=== PATIENT | female | born 1995 | race Two or more races ===

== ENCOUNTER 2021-06-16 17:50 | Observation (INO) | payer MEDICAID ==
[~2021-06-16] VITALS: Ht 170.2 cm; Wt 93.4 kg
[2021-06-16] MEDS ORDERED: ASPIRIN 81 MG (21:52)
[2021-06-16] MEDS ORDERED: PRENATAL VITAMIN (21:52)
== END 2021-06-16 22:00 | disposition home or self-care (01) ==
LOC: 8 EST LDRP 17:50
PROVIDERS: ADMIT Obstetrics & Gynecology; ATTEND Obstetrics & Gynecology
DX: O36.8130 Decreased fetal movements, third trimester, not applicable or unspecified (principal); Z3A.28 28 weeks gestation of pregnancy
CPT/HCPCS: 59025; 76805; 76818; G0378; 99281

== ENCOUNTER 2024-05-02 14:34 | Emergency (ER) | payer MEDICAID ==
[~2024-05-02] VITALS: Ht 170.2 cm; Wt 120.0 kg
[~2024-05-02 14:34] MED LIST: ASPIRIN 81 MG; PRENATAL VITAMIN
[2024-05-02 14:39] VITALS: O2SAT 98
[2024-05-02] MEDS ORDERED: ONDANSETRON HCL 4MG/2ML INJ IV ONE (15:30)
[2024-05-02] MEDS ORDERED: ACETAMINOPHEN 325MG TABLET PO ONE (15:30)
[2024-05-02 15:56] LABS: CARBON DIOXIDE 23 mEq/L (21-32)
[2024-05-02 15:57] LABS: CALCIUM 9.1 mg/dL (8.7-10.4)
[2024-05-02 16:01] LABS: CREATININE 0.5 mg/dL (0.6-1.0); GLUCOSE 119 mg/dL (70-105); UREA NITROGEN BLOOD 6 mg/dL (9-23)
[2024-05-02 16:03] LABS: BASOPHILS % 0.2 % (0.0-2.0); EOSINOPHILS % 0.5 % (0.0-5.0); HEMATOCRIT. 36.2 % (36.0-48.0); HEMOGLOBIN. 12.2 g/dL (12.0-16.0); LYMPHOCYTES % 18.1 % (20.0-50.0); MEAN CORPUSCULAR HEMOGLOBIN 30.4 pg (28.0-32.0); MEAN CORPUSCULAR HGB CONC 33.6 g/dL (31.0-37.0); MEAN CORPUSCULAR VOLUME 90.4 fL (81.0-99.0); MEAN PLATELET VOLUME 8.7 fl (7.4-10.4); MONOCYTES % 4.5 % (2.0-8.0); NEUTROPHILS % 76.7 % (40.0-76.0); PLATELET 328 x1000/uL (130-400); RED CELL DISTRIBUTION WIDTH 13.7 % (11.6-14.6); WHITE BLOOD COUNT 9.6 x1000/uL (4.5-11.0)
[2024-05-02 16:10] LABS: HCG SCREEN POSITIVE
[2024-05-02 16:13] LABS: CHLORIDE 109 mEq/L (98-107); POTASSIUM 2.9 mEq/L (3.5-5.1); SODIUM 138 mEq/L (136-145)
[2024-05-02 16:18] LABS: B-HCG QUANTITATIVE 85490 mIU/mL (<3)
[2024-05-02] MEDS: SODIUM CHLORIDE 0.9% 1,000 ML IV ONE (17:20)
[2024-05-02] MEDS: ACETAMINOPHEN 325MG TABLET PO NR (17:27)
[2024-05-02] MEDS: ONDANSETRON HCL 4MG/2ML INJ IV NR (17:27)
[2024-05-02] MEDS ORDERED: POTASSIUM BICARB/CIT ACID 25 MEQ TABLET.EFF PO ONE (17:45)
[2024-05-02] MEDS ORDERED: ONDA4TAB11 PO (18:03)
[2024-05-02] MEDS ORDERED: PREN-135 MT (18:03)
[2024-05-02] MEDS: POTASSIUM BICARB/CIT ACID 25 MEQ TABLET.EFF PO SCH (18:24)
[2024-05-02 18:37] VITALS: BP 110/80; PULSE 85; RESP 17; TEMP 98.7
== END 2024-05-02 18:38 | disposition home or self-care (01) ==
LOC: ER 14:34
DX: O20.0 Threatened abortion (principal); Z3A.10 10 weeks gestation of pregnancy
CPT/HCPCS: 99285; 96374; 76801; 96361; 80048; 81025; 84703; 84702; 85025; 86850; 86900; 86901; 36415; 76817; J2405; J7030

== ENCOUNTER 2024-08-04 10:37 | Emergency (ER) | payer MEDICAID ==
[~2024-08-04] VITALS: Ht 162.6 cm; Wt 86.0 kg
[~2024-08-04 10:37] MED LIST changes: +ONDA-239 PO; +PREN-135 MT
[2024-08-04 11:14] LABS: CLARITY URINE TURBID (CLEAR); COLOR URINE YELLOW (YELLOW); GLUCOSE URINE NEGATIVE (NEGATIVE); KETONES URINE NEGATIVE (NEGATIVE); LEUKOCYTE ESTERASE URINE 3+ (NEGATIVE); NITRITE URINE NEGATIVE (NEGATIVE); OCCULT BLOOD URINE NEGATIVE (NEGATIVE); PH URINE 7.5 (4.5-8.0); PROTEIN URINE TRACE (NEGATIVE); SPECIFIC GRAVITY URINE 1.014 (1.005-1.030)
[2024-08-04 11:39] LABS: BACTERIA URINE 2+; RBC URINE 0-2 /hpf (0-2); SQUAMOUS EPITHELIAL CELL URINE 3+ /lpf (RARE/1+); WBC URINE 15-25 /hpf (0-2); YEAST URINE NONE SEEN
[2024-08-04 11:40] LABS: TRICHOMONAS URINE 1+
[2024-08-04 11:44] LABS: HEMATOCRIT. 32.6 % (36.0-48.0); HEMOGLOBIN. 10.9 g/dL (12.0-16.0); MEAN CORPUSCULAR HEMOGLOBIN 29.9 pg (28.0-32.0); MEAN CORPUSCULAR HGB CONC 33.6 g/dL (31.0-37.0); MEAN CORPUSCULAR VOLUME 89.1 fL (81.0-99.0); MEAN PLATELET VOLUME 7.6 fl (7.4-10.4); PLATELET 455 x1000/uL (130-400); RED BLOOD CELL COUNT 3.66 mill/uL (4.2-5.4); RED CELL DISTRIBUTION WIDTH 13.5 % (11.6-14.6); WHITE BLOOD COUNT 10.5 x1000/uL (4.5-11.0)
[2024-08-04 11:46] LABS: DIFFERENTIAL COMMENT 1
[2024-08-04 11:49] LABS: CHLORIDE 106 mEq/L (98-107); POTASSIUM 3.7 mEq/L (3.5-5.1); SODIUM 136 mEq/L (136-145)
[2024-08-04 11:50] LABS: CALCIUM 8.7 mg/dL (8.7-10.4); CARBON DIOXIDE 25 mEq/L (21-32)
[2024-08-04 11:51] VITALS: TEMP 36.83628
[2024-08-04 11:55] LABS: CREATININE 0.4 mg/dL (0.6-1.0); GLUCOSE 78 mg/dL (70-105); UREA NITROGEN BLOOD 5 mg/dL (9-23)
[2024-08-04 12:15] LABS: *AMPHETAMINES SCREEN URINE PRESUMPTIVE POSITIVE (NEGATIVE); *BARBITURATES SCREEN URINE NEGATIVE (NEGATIVE); *BENZODIAZEPINES SCREEN URINE NEGATIVE (NEGATIVE); *COCAINE SCREEN URINE NEGATIVE (NEGATIVE)
[2024-08-04 12:16] LABS: CANNABINOID URINE SCREEN PRESUMPTIVE POSITIVE (NEGATIVE); ECSTASY MDMA SCREEN URINE NEGATIVE (NEGATIVE); METHADONE URINE SCREEN NEGATIVE (NEGATIVE); OPIATES URINE SCREEN NEGATIVE (NEGATIVE); PHENCYCLIDINE URINE SCREEN NEGATIVE (NEGATIVE)
[2024-08-04] MEDS ORDERED: CEFP200T14 MT (12:37)
[2024-08-04] MEDS ORDERED: METR-167 MT (12:37)
[2024-08-04 13:01] LABS: B-HCG QUANTITATIVE 10891 mIU/mL (<3)
[2024-08-04] MEDS: AZITHROMYCIN 500 MG TABLET PO ONE (13:45)
[2024-08-04] MEDS: CEFTRIAXONE SODIUM 500MG VIAL IM ONE (13:48)
[2024-08-04 13:55] VITALS: BP 131/54; PULSE 88; RESP 15; O2SAT 98
[2024-08-04 14:14] LABS: PLATELET ESTIMATE SLIGHTLY INCREASED
[2024-08-07 05:10] LABS: CHLAMYDIA TRACHOMATIS NAA Negative (Negative); NEISSERIA GONORRHOEAE NAA Negative (Negative)
== END 2024-08-04 14:00 | disposition home or self-care (01) ==
LOC: ER 10:37
DX: O23.42 Unspecified infection of urinary tract in pregnancy, second trimester (principal); O98.312 Other infections with a predominantly sexual mode of transmission complicating pregnancy, second trimester; O26.893 Other specified pregnancy related conditions, third trimester; O20.0 Threatened abortion; A59.9 Trichomoniasis, unspecified; Z3A.25 25 weeks gestation of pregnancy
CPT/HCPCS: 87491; 87591; 80305; 80048; 81003; 84702; 85025; 86850; 86900; 86901; 87086; 36415; 76815; 96372; 99285; J0696; Z7610 ×2

== ENCOUNTER 2024-08-26 11:45 | Emergency (ER) | payer MEDICAID ==
[~2024-08-26] VITALS: Ht 170.2 cm; Wt 104.0 kg
[~2024-08-26 11:45] MED LIST changes: +CEFP200T14 MT; +METR-167 MT
[2024-08-26 11:46] VITALS: O2SAT 100
[2024-08-26 12:20] LABS: BASOPHILS % 0.1 % (0.0-2.0); EOSINOPHILS % 0.5 % (0.0-5.0); HEMATOCRIT. 33.3 % (36.0-48.0); HEMOGLOBIN. 11.1 g/dL (12.0-16.0); LYMPHOCYTES % 22.7 % (20.0-50.0); MEAN CORPUSCULAR HEMOGLOBIN 30.2 pg (28.0-32.0); MEAN CORPUSCULAR HGB CONC 33.4 g/dL (31.0-37.0); MEAN CORPUSCULAR VOLUME 90.6 fL (81.0-99.0); MONOCYTES % 5.6 % (2.0-8.0); NEUTROPHILS % 71.1 % (40.0-76.0); PLATELET 330 x1000/uL (130-400); RED BLOOD CELL COUNT 3.67 mill/uL (4.2-5.4); WHITE BLOOD COUNT 9.8 x1000/uL (4.5-11.0)
[2024-08-26 12:27] LABS: CHLORIDE 107 mEq/L (98-107); POTASSIUM 3.5 mEq/L (3.5-5.1); SODIUM 138 mEq/L (136-145)
[2024-08-26 12:28] LABS: CARBON DIOXIDE 21 mEq/L (21-32)
[2024-08-26 12:29] LABS: CALCIUM 9.1 mg/dL (8.7-10.4)
[2024-08-26 12:33] LABS: CREATININE 0.3 mg/dL (0.6-1.0); GLUCOSE 79 mg/dL (70-105); UREA NITROGEN BLOOD 7 mg/dL (9-23)
[2024-08-26 12:52] LABS: B-HCG QUANTITATIVE 10924 mIU/mL (<3)
[2024-08-26 13:01] LABS: CLARITY URINE CLOUDY (CLEAR); COLOR URINE DARK YELLOW (YELLOW); GLUCOSE URINE NEGATIVE (NEGATIVE); KETONES URINE 2+ (NEGATIVE); LEUKOCYTE ESTERASE URINE 1+ (NEGATIVE); NITRITE URINE NEGATIVE (NEGATIVE); OCCULT BLOOD URINE NEGATIVE (NEGATIVE); PROTEIN URINE TRACE (NEGATIVE); SPECIFIC GRAVITY URINE 1.026 (1.005-1.030)
[2024-08-26] MEDS ORDERED: CEPH250C2 MT (13:18)
[2024-08-26 13:30] VITALS: BP 117/56; PULSE 98; RESP 16; TEMP 36.66960; O2SAT 99
[2024-08-26 13:43] LABS: BACTERIA URINE 1+; CALCIUM OXALATE CRYSTALS URINE 1+ /lpf; MUCUS URINE 1+ /lpf (< = 2+); RBC URINE 0-2 /hpf (0-2); SQUAMOUS EPITHELIAL CELL URINE 2+ /lpf (RARE/1+); YEAST URINE NONE SEEN
== END 2024-08-26 13:35 | disposition home or self-care (01) ==
LOC: ER 11:45
DX: O21.2 Late vomiting of pregnancy (principal); O46.93 Antepartum hemorrhage, unspecified, third trimester; Z3A.28 28 weeks gestation of pregnancy
CPT/HCPCS: 36415; 76815; 80048; 81003; 81025; 84702; 85025; 86850; 86900; 99284

== ENCOUNTER 2024-10-19 06:58 | Emergency (ER) | payer MEDICAID ==
[~2024-10-19 06:58] MED LIST changes: +CEPH250C2 MT
== END 2024-10-19 07:35 | disposition left against medical advice (07) ==
LOC: ER 06:58
DX: Z00.00 Encounter for general adult medical examination without abnormal findings (principal); Z53.21 Procedure and treatment not carried out due to patient leaving prior to being seen by health care provider